=== PATIENT | female | born 1940 | race Caucasian/White ===

== ENCOUNTER 2017-10-14 16:02 | Emergency (ER) | payer OTHER, MEDICAID ==
[~2017-10-14] VITALS: Ht 157.5 cm; Wt 58.5 kg
[~2017-10-14 16:02] MED LIST: ALEIVE PO; ALEVE220 MG PO; ASPIRIN EC81 M1 PO; CELEXA 10 MG TA10 M1 PO; CELEXA40 MG PO; CIPRO250 M1 PO; CIPROFLOXACIN500 M3 PO; FLAGYL500 MG PO; IRON325 PO; LEXAPRO 10 MG T10 M2 PO; LISINOPRIL2.5 MG PO; MULTIVITAMINS1 EAC7 PO; PHENERGAN 25 MG25 MG PO; VITAMINC500 PO
[2017-10-14 16:36] LABS: ABSOLUTE BASOPHILS 0.1 thou/uL (0.0-0.2); ABSOLUTE EOSINOPHILS 0.7 thou/uL (0.0-0.7); ABSOLUTE LYMPHOCYTES 2.6 thou/uL (0.8-5.3); ABSOLUTE MONOCYTES 0.4 thou/uL (0.0-1.2); ABSOLUTE NEUTROPHILS 3.7 thou/uL (1.6-8.1); EOSINOPHILS 9.7 %; HEMATOCRIT 35.8 % (37.0-47.0); HEMOGLOBIN 11.9 gm/dL (12.0-15.0); LYMPHOCYTES 34.5 %; MCH 29.3 pg (26.0-34.0); MCHC 33.2 g/dL (28.0-37.0); MONOCYTES 5.8 %; MPV 8.6 fl. (7.2-11.1); NUCLEATED RBCS 0 /100WBC; PLATELET COUNT* 319 thou/uL (150-400); RBC 4.07 mil/uL (4.20-5.00); RDW-CV 14.9 % (10.5-14.5); WBC 7.6 thou/uL (4.0-11.0)
[2017-10-14 16:40] LABS: ANION GAP 16 mmol/L (7-16); BUN 17 mg/dL (7-18); CALCIUM 9.5 mg/dL (8.5-10.1); CHLORIDE 112 mmol/L (98-107); CO2 17 mmol/L (21-32); CREATININE 1.2 mg/dL (0.6-1.3); GLUCOSE 123 mg/dL (70-99); POTASSIUM 3.9 mmol/L (3.5-5.1); SODIUM 145 mmol/L (136-145)
[2017-10-14 16:51] LABS: ALBUMIN 3.7 g/dL (3.4-5.0); ALKALINE PHOSPHATASE 61 U/L (46-116); LIPASE 74 U/L (73-393); NT-PRO BRAIN NAT PEPTIDE 1671 pg/mL (<300); SGOT 13 U/L (15-37); SGPT 15 U/L (30-65); TOTAL BILIRUBIN 0.5 mg/dL (<0.1-1.0); TOTAL PROTEIN 7.5 g/dL (6.4-8.2); TROPONIN-I LEVEL <0.06 ng/mL (<0.06)
[2017-10-14] MEDS ORDERED: CIPRO250 M1 PO (17:46)
[2017-10-14] MEDS ORDERED: PHENERGAN 25 MG25 M1 PO (17:46)
[2017-10-14 18:54] VITALS: BP 115/79
--- NOTE | 2017-10-15 09:33 | EKG ---
[place] [address] ELECTROCARDIOGRAM REPORT Name: STANLEY MAHAN Room: [facility]#: [id number] Admission: 10/14/17 Attend Phys: Discharge: 10/14/17 Date of : 40 Report #: [id number] THIS REPORT FOR: //name// [facility] ED Test Date: 2017-10-14 Test Time: 15:59:56 Pat Name: STANLEY MAHAN Department: Room: Gender: F Wireless Manager: Josee HALE : 1940 Requested By: Alirio Trujillo Order Number: [id number] MD: Ethan Manuel Measurements Intervals [place] Rate: 79 P: 57 GA: 154 QRS: -54 QRSD: 121 T: 74 QT: 423 QTc: 486 Interpretive Statements Sinus rhythm Left bundle branch block Baseline wander in lead(s) V6 Compared to ECG 05/25/2015 21:05:23 Left bundle-branch block now present Atrial premature complex(es) no longer present Left anterior fascicular block no longer present Left-axis deviation no longer present Intraventricular conduction delay no longer present Electronically Signed On 10-15-2017 9:33:13 CDT by Ethan Manuel [email or web address] <ELECTRONICALLY SIGNED> By: Ethan Manuel MD, [facility] 10/15/17 0933 1559 1559 Ethan Manuel MD, [facility] /EPI
== END 2017-10-14 18:54 | disposition home or self-care (01) ==
LOC: M.ERS 16:02
PROVIDERS: Emergency Medicine
DX: N39.0 Urinary tract infection, site not specified (principal); I10 Essential (primary) hypertension; F41.9 Anxiety disorder, unspecified; Z85.3 Personal history of malignant neoplasm of breast; Z88.0 Allergy status to penicillin

== ENCOUNTER 2018-06-15 17:45 | Inpatient (IN) | payer OTHER, MEDICAID ==
[~2018-06-15] VITALS: Ht 157.5 cm; Wt 63.9 kg
[~2018-06-15 17:45] MED LIST changes: -CELEXA40 MG PO; +LEXAPRO20 MG PO; +PHENERGAN 25 MG25 M1 PO
[2018-06-15 17:47] VITALS: BP 177/85
[2018-06-15 18:50] LABS: HEMATOCRIT 39.3 % (37.0-47.0); HEMOGLOBIN 12.9 gm/dL (12.0-15.0); MCH 29.2 pg (26.0-34.0); MCHC 32.9 g/dL (28.0-37.0); MCV 88.8 fL (80.0-100.0); MPV 7.9 fl. (7.2-11.1); NUCLEATED RBCS 0 /100WBC; PLATELET COUNT* 280 thou/uL (150-400); RBC 4.43 mil/uL (4.20-5.00); RDW-CV 13.8 % (10.5-14.5); WBC 9.3 thou/uL (4.0-11.0)
[2018-06-15 18:59] LABS: CALCIUM 9.4 mg/dL (8.5-10.1); CREATININE 1.5 mg/dL (0.6-1.3); POTASSIUM 3.5 mmol/L (3.5-5.1)
[2018-06-15 19:05] LABS: ALBUMIN 3.9 g/dL (3.4-5.0); TOTAL BILIRUBIN 0.4 mg/dL (<0.1-1.0); TOTAL PROTEIN 7.9 g/dL (6.4-8.2); TROPONIN-I LEVEL 0.08 ng/mL (<0.06)
[2018-06-15 19:09] LABS: ABSOLUTE LYMPHOCYTES 0.9 thou/uL (0.8-5.3); ABSOLUTE MONOCYTES 0.3 thou/uL (0.0-1.2); ABSOLUTE NEUTROPHILS 8.1 thou/uL (1.6-8.1)
[2018-06-15 19:10] LABS: CLUMPED PLTS RARE; PLATELET ESTIMATE ADEQUATE
[2018-06-15 21:00] VITALS: BP 151/74
[2018-06-15 21:15] VITALS: BP 140/90
[2018-06-16] VITALS: BP 156/45
[2018-06-16 00:10] LABS: URINE BILIRUBIN NEGATIVE (Negative); URINE BLOOD 1+ (Negative); URINE CLARITY CLEAR; URINE COLOR YELLOW; URINE GLUCOSE-RANDOM NEGATIVE (Negative); URINE KETONES NEGATIVE (Negative); URINE LEUKOCYTES-REFLEX TRACE (Negative); URINE NITRITE-REFLEX NEGATIVE (Negative); URINE PROTEIN NEGATIVE (Negative); URINE SPECIFIC GRAVITY >= 1.030 (1.005-1.030); URINE UROBILINOGEN 0.2 E.U./dl (0.2-1.0)
[2018-06-16 00:19] LABS: BACTERIA-REFLEX >30 Many /HPF (None Seen); COARSE GRANULAR CASTS 0-3 Few /LPF (None Seen); CRYSTALS None Seen /LPF (None Seen); FINE GRANULAR CASTS 0-3 Few /LPF (None Seen); HYALINE CASTS 0-3 Few /LPF (None Seen); MUCUS 4-6 Moderate strn/LPF (None Seen); SQUAMOUS 0-3 Few /LPF (0-3); URINE RBC 3-10 Few /HPF (0-2); URINE WBC-REFLEX 6-15 Few /HPF (0-5)
[2018-06-16 04:00] VITALS: BP 121/55
--- NOTE | 2018-06-16 06:12 | NUR ---
PT TO FLOOR APPROX 2100. VITALS WNL. SEE MAR. SEE CHARTING. FALL PRECAUTIONS IN PLACE. HOURLY ROUNDING FOR SAFETY.
[2018-06-16 09:00] VITALS: BP 124/53; BP 138/69
--- NOTE | 2018-06-16 09:00 | NUR ---
ASSUMED PT. CARE AND RECEIVED REPORT AT 0730. PT A/OX4, VSS, MONITOR ON TRACING SR. PT. DENIES CURRENT PAIN/NAUSEA/DIARRHEA. ON RA@ 99%. FULL ASSESSMENT COMPLETED, REFER TO CHARTING. PT. ANXIOUS ABOUT BEING IN HOSPITAL AND NEEDING TO GO HOME. PT. STATES SHE NEEDS TO LEAVE SO HER DAUGHTER CAN GO TO WORK TOMORROW, AND SHE CAN TAKE CARE OF THE DOG. PT. EDUCATED ON PLAN OF CARE AND CURRENT LAB RESULTS. FAMILY MEMBER AT BEDSIDE AND ENCOURAGED PT. TO FOCUS ON SELF, THEY COULD TAKE CARE OF THE DOG. CALL LIGHT IN REACH, WILL CONTINUE WITH PLAN OF CARE.
[2018-06-16 11:17] LABS: ANION GAP 9 mmol/L (7-16); BUN 23 mg/dL (7-18); CALCIUM 7.9 mg/dL (8.5-10.1); CHLORIDE 112 mmol/L (98-107); CO2 20 mmol/L (21-32); CREATININE 1.3 mg/dL (0.6-1.3); GLUCOSE 101 mg/dL (70-99); POTASSIUM 3.9 mmol/L (3.5-5.1); SODIUM 141 mmol/L (136-145)
[2018-06-16 11:21] LABS: CHOLESTEROL 159 mg/dL (<200); HDL CHOLESTEROL 47 mg/dL (>40); LDL CHOLESTEROL 103 mg/dL (<100); MAGNESIUM 1.6 mg/dL (1.8-2.4); TC:HDL 3.4 Ratio (Not establshd); TRIGLYCERIDE 49 mg/dL (<150); VLDL 10 mg/dL (<40)
[2018-06-16 11:23] LABS: SERUM ASSESSMENT Clear
[2018-06-16 12:00] VITALS: BP 127/52
--- NOTE | 2018-06-16 12:15 | NUR ---
MET WITH PT TO DISCUSS HOME SITUATION/DC PLANNING. PT AND HER DTR SHEY LIVE TOGETHER. SHEY WORKS. PT IS INDEPENDENT WTIH ADLS, USES NO EQUIPMENT. SHE IS ANXIOUS TO GO HOME, WORRIED ABOUT THE DOG. DIL IN ROOM AND IS CARING FOR DOG. REASSURANCE GIVEN TO PT. PT STATES FEELING IMPROVED. DENIES DC NEEDS, WILL FOLLOW
--- NOTE | 2018-06-16 13:56 | EKG ---
[place] [address] ELECTROCARDIOGRAM REPORT Name: STANLEY MAHAN Room: [address] ADM IN M.R.#: [id number] Admission: 06/15/18 Attend Phys: Wei Stack MD Discharge: Date of : 40 Report #: [id number] THIS REPORT FOR: //name// [facility] ED Test Date: 2018-06-15 Test Time: 18:31:32 Pat Name: STANLEY MAHAN Department: Room: [facility] Gender: F Import/Export Specialist: ABIGAIL : 1940 Requested By: Latisha Darnell Order Number: [id number] MD: Gee Lynn Measurements Intervals [place] Rate: 85 P: 66 [place]: 168 QRS: -66 QRSD: 123 T: 103 QT: 413 QTc: 492 Interpretive Statements Sinus rhythm Atrial premature complexes Nonspecific IVCD with LAD LVH with secondary repolarization abnormality Anterior Q waves, possibly due to LVH Compared to ECG 10/14/2017 15:59:56 Atrial premature complex(es) now present Left ventricular hypertrophy now present Electronically Signed On 06-16-2018 13:56:32 ROW BOSS by Gee Lynn [email or web address] <ELECTRONICALLY SIGNED> By: Gee Lynn MD, FACC 06/16/18 1356 183 183 Gee Lynn MD, FAC /EPI
--- NOTE | 2018-06-16 13:57 | EKG ---
[place] [address] ELECTROCARDIOGRAM REPORT Name: STANLEY MAHAN Room: [address] ADM IN M.R.#: [id number] Admission: 06/15/18 Attend Phys: Wei Stack MD Discharge: Date of : 40 Report #: [id number] THIS REPORT FOR: //name// [facility] ED Test Date: 2018-06-15 Test Time: 20:10:17 Pat Name: STANLEY MAHAN Department: Room: [facility] Gender: F Internal Medicine Physician: Josee TEIXEIRA : 1940 Requested By: Nikky Cardenas Order Number: [id number] MD: Gee Lynn Measurements Intervals [place] Rate: 90 P: 44 ND: 166 QRS: -58 QRSD: 120 T: 103 QT: 391 QTc: 479 Interpretive Statements Sinus rhythm Ventricular premature complex Left anterior fascicular block Probable left ventricular hypertrophy Anterior Q waves, possibly due to LVH Abnormal T, consider ischemia, lateral leads Electronically Signed On 06-16-2018 13:57:31 CLEARING SUPERVISOR by Gee Lynn [email or web address] <ELECTRONICALLY SIGNED> By: Gee Lynn MD, FACC 06/16/18 1357 09 09 Gee Lynn MD, [facility] /EPI
--- NOTE | 2018-06-16 16:23 | 2DMMODE ---
[place] [address] 2 D/M-MODE ECHOCARDIOGRAM Name: STANLEY MAHAN Room: [address] IN [facility]#: [id number] Admission: 06/15/18 Attend Phys: Wei Stack, Discharge: Date of : 40 Date of Service: 06/16/18 1623 Report #: [id number] THIS REPORT FOR: //name// APPROVED REPORT Study performed: 06/16/2018 15:05:24 EXAM: Comprehensive 2D, Doppler, and color-flow Echocardiogram Patient Location: In-Patient Room #: [facility] Status: routine BSA: 1.62 HR: 75 bpm BP: 127/52 mmHg Rhythm: NSR Other Information Study Quality: Good Indications Chest Pain 2D Dimensions IVSd: 10.84 (7-11mm) LVOT Diam: 20.05 (18-24mm) LVDd: 53.33 mm PWd: 11.46 (7-11mm) Ascending Ao: 28.88 (22-36mm) LVDs: 40.88 (25-40mm) Aortic Root: 30.79 mm Volumes Left Atrial Volume (Systole) LA ESV Index: 41.60 mL/m2 Aortic Valve AoV Peak Dmitri.: 2.42 m/s AO Peak Gr.: 23.43 mmHg LVOT Max P.39 mmHg AO Mean Gr.: 13.42 mmHg LVOT Mean P.93 mmHg LVOT Max V: 1.36 m/s AO V2 VTI: 51.96 cm LVOT Mean V: 0.92 m/s KAMERON (VTI): 1.82 cm2 LVOT V1 VTI: 30.00 cm AI Ripley: 4.47 m/s2 AI PHT: 267.41 ms Mitral Valve E/A Ratio: 0.86 [place] [address] 2 D/M-MODE ECHOCARDIOGRAM Name: STANLEY MAHAN Room: [address] IN [facility].#: [id number] Admission: 06/15/18 Attend Phys: Wei Stack, Discharge: Date of : 40 Date of Service: 06/16/18 1623 Report #: [id number] MV Decel. Time: 228.10 ms MV E Max Dmitri.: 1.11 m/s MV PHT: 66.15 ms MVA (PHT): 3.33 cm2 TDI E/Lateral E': 9.25 E/Medial E': 13.88 Medial E' Dmitri.: 0.08 m/s Lateral E' Dmitri.: 0.12 m/s Pulmonary Valve PV Peak Dmitri.: 1.04 m/s PV Peak Gr.: 4.34 mmHg Tricuspid Valve RAP Estimate: 5.00 mmHg TR Peak Gr.: 25.44 mmHg RVSP: 30.00 mmHg PA Pressure: 30.00 mmHg Left Ventricle The left ventricle is normal size. There is normal LV segmental wall motion. There is normal left ventricular wall thickness. Left ventricular systolic function is normal. The left ventricular ejection fraction is within the normal range. LVEF is 50-55%. The left ventricular diastolic function is normal. Right Ventricle The right ventricle is normal size. The right ventricular systolic function is normal. Atria Left atrium is mild to moderately dilated. The right atrium size is normal. Aortic Valve Mild aortic valve sclerosis. Trace aortic regurgitation. Mild aortic stenosis. Mitral Valve There is mitral annular calcification. Trace mitral regurgitation. No evidence of mitral valve stenosis. Tricuspid Valve The tricuspid valve is normal in structure. Mild tricuspid regurgitation. estimated pa pressure 30 [place] [address] 2 D/M-MODE ECHOCARDIOGRAM Name: STANLEY MAHAN Room: [address]#: [id number] Admission: 06/15/18 Attend Phys: Wei Stack, Discharge: Date of : 40 Date of Service: 06/16/18 1623 Report #: [id number] The pulmonary valve is normal in structure. Trace pulmonic regurgitation. Great Vessels The aortic root is normal in size. IVC is normal in size and collapses >50% with inspiration. Pericardium There is no pericardial effusion. <Conclusion> LVEF is 50-55%. Left atrium is mild to moderately dilated. Mild aortic stenosis. <ELECTRONICALLY SIGNED> By: Gee Lynn MD, FACC 06/16/18 1623 1623 1623 Gee Lynn MD, FACC /INF
[2018-06-16 16:42] VITALS: BP 143/57
--- NOTE | 2018-06-16 19:00 | NUR ---
PT. WITH 2 WATERY STOOLS TODAY, GREEN IN COLOR. NO NAUSEA/VOMITING THIS SHIFT. PT. STATES SHE IS FEELING BETTER. PT. ANXIOUS AT TIMES, CONCERNED OVER FAMILY BEING HERE AND MISSING OUT ON THEIR APPOINTMENTS TO TAKE CARE OF HER. TOLERATED FOOD WELL, WITH EXCEPTION OF "SPICEY" PASTA FOR DINNER. PT RECEIVED MYLANTA PER REQUEST. HOURLY ROUNDING COMPLETED THROUGH OUT THE DAY FOR PT. SAFETY.
[2018-06-16 20:00] VITALS: BP 150/97
[2018-06-17] VITALS (7 sets, daily range): BP systolic 104–157; BP diastolic 60–83
[2018-06-17 00:14] LABS: INFLUENZA A ANTIGEN None Detected (None Detect); INFLUENZA B ANTIGEN None Detected (None Detect)
[2018-06-17 05:11] LABS: HEMATOCRIT 29.7 % (37.0-47.0); MCH 29.5 pg (26.0-34.0); MCHC 33.1 g/dL (28.0-37.0); MCV 89.1 fL (80.0-100.0); MPV 7.9 fl. (7.2-11.1); RBC 3.34 mil/uL (4.20-5.00); RDW-CV 13.6 % (10.5-14.5); WBC 5.7 thou/uL (4.0-11.0)
[2018-06-17 05:17] LABS: HEMOGLOBIN 9.9 gm/dL (12.0-15.0)
--- NOTE | 2018-06-17 05:46 | NUR ---
ASSUMED CARE OF PT AFTER REPORT AT 1930. PT A&OX4. VSS. PHSYICAL ASSESSMENT COMPLETED AND CHARTED. PT ON RA WITH 99% O2 SAT. PT TRACING SR BBB ON TELE. PT UP STANDBY TO RESTROOM. DENIES ANY PAIN, NAUSEA OR SOA. PT RESTED WELL ON BED . HS REST & SAFETY GOALS ACHIEVED. CALL LIGHT WITHIN REACH. BED IN LOW POSITION.
[2018-06-17 06:01] LABS: CALCIUM 8.2 mg/dL (8.5-10.1); POTASSIUM 3.7 mmol/L (3.5-5.1)
--- NOTE | 2018-06-17 10:46 | CON ---
[address] [address] CONSULTATION Name: STANLEY MAHAN Room: [address] IN M.R.#: [id number] Admission: 06/15/18 Attend Phys: Wei Stack MD Discharge: Date of : 40 Report #: [id number] THIS REPORT FOR: //name// CC: Wei Rayo MD DATE OF SERVICE: 06/16/2018 HISTORY OF PRESENT ILLNESS: The patient is a 77-year-old single white female who I was asked to see in the hospital today after she complained of fatigue. The patient has no previous history of heart disease. She still lives by herself and able to do her housework. She has no history of myocardial infarction, chest pain, shortness of breath, palpitations. She apparently did have an episode recently where she has been lying in bed, had a brief episode of confusion. She then was doing well until yesterday afternoon; she felt nauseated, vomited, had loose stool and felt weak. An ambulance was called. She was brought here to [place] and admitted. She is known to have a borderline troponin. I was asked to see her for further evaluation and treatment. PAST MEDICAL HISTORY: Significant for breast cancer. She had left mastectomy. She has had previous colonoscopy that found no polyps. She does have a history of hypertension. She was here at [place] in 2014 with gastroenteritis. CURRENT MEDICATIONS: Consist of lisinopril and an anxiety pill. ALLERGIES: PENICILLIN. FAMILY HISTORY: Her father had heart disease. SOCIAL HISTORY: She is , lives with daughter in [place]. No smoking or alcohol abuse. REVIEW OF SYSTEMS: She had no history of stroke, asthma, peptic ulcer disease, liver disease, kidney disease, psychiatric illness or chronic skin condition. PHYSICAL EXAMINATION: GENERAL: Revealed an elderly frail appearing female, lying in bed. She appeared in no distress. VITAL SIGNS: She had a blood pressure of 140/80, pulse is 80. She was afebrile. HEENT: She is anicteric, conjunctiva pink. Mucous membranes moist. NECK: Veins nondistended. No carotid bruits. Neck supple. CHEST: Clear to auscultation. CARDIOVASCULAR: Regular [place] [address] CONSULTATION Name: STANLEY MAHAN Fany Room: [address]#: [id number] Admission: 06/15/18 Attend Phys: Wei Stack MD Discharge: Date of : 40 Report #: [id number] ABDOMEN: Soft, nontender. EXTREMITIES: Had no edema. Dorsalis pedis pulse 2+ bilaterally. SKIN: Warm, dry. NEUROLOGIC: Nonfocal. LYMPH: No adenopathy. MUSCULOSKELETAL: No joint effusion. ECG on admission showed a sinus rhythm, occasional PAC, left anterior fascicular block. On the monitor, the patient has had occasional PVC. Her workup today, she had an echocardiogram that showed ejection fraction 55%, left atrial dilatation and mild aortic stenosis. She had CT scan of the abdomen that showed evidence of gastroenteritis, diverticulosis, small gallstones. Her chest x-ray showed no acute abnormality. LABORATORY WORK: Sodium 141, creatinine 1.3, glucose 101. Liver function studies were normal. Troponin was 0.08, actually peaked at 0.22. Her cholesterol 159, triglyceride 49, HDL 47, LDL 103. Her white blood cell count 9.3, hemoglobin 12.9. She had a urinalysis that was negative for protein, 1+ blood, trace leukocytes, few squamous cells. IMPRESSION AND RECOMMENDATIONS: 1. Borderline troponin. No history of angina. I would recommend no further cardiac evaluation. 2. Mild aortic stenosis. 3. Hypertension. The patient is on an COSMO inhibitor. 4. Nausea, vomiting, diarrhea. Suspect gastroenteritis. 5. History of breast cancer. <ELECTRONICALLY SIGNED> By: Gee Lynn MD, FACC 06/17/18 1046 1657 [id number] Lynn MD, FACC /nt
[2018-06-17] MEDS ORDERED: LIPITOR 20 MG T20 M1 PO (11:53)
--- NOTE | 2018-06-17 12:29 | NUR ---
ASSUMED PT CARE AT 0730 REPORT RECEIVED FROM NURSE. PT IS AOX4 SR ON DIRECTOR OF MANUFACTURING OPERATIONS, WALKED IN ROOM AND PT ASKED WHEN SHE IS GOING HOME. NURSE TELLS PT TO WAIT FOR DR . PT HAD LOOSED STOOL THIS AM. DR AWARE, DR CAME UP AND SIGNED DC PAPERS. PT TO BE DC LATER TODAY. ALEK CONTINUE TO MONITOR
== END 2018-06-17 13:30 | disposition home or self-care (01) | DRG 391 ==
LOC: M.ERS 17:45 → M.TBA-ER 20:16 → M.2W 20:16
PROVIDERS: Internal Medicine; Physician Assistant; ADMIT Internal Medicine
DX: A08.4 Viral intestinal infection, unspecified (principal); N17.0 Acute kidney failure with tubular necrosis; I10 Essential (primary) hypertension; F41.9 Anxiety disorder, unspecified; I35.0 Nonrheumatic aortic (valve) stenosis; K59.09 Other constipation; K80.20 Calculus of gallbladder without cholecystitis without obstruction; K57.90 Diverticulosis of intestine, part unspecified, without perforation or abscess without bleeding; F41.1 Generalized anxiety disorder; I25.10 Atherosclerotic heart disease of native coronary artery without angina pectoris; Z79.82 Long term (current) use of aspirin; Z85.3 Personal history of malignant neoplasm of breast; Z90.11 Acquired absence of right breast and nipple; Z87.81 Personal history of (healed) traumatic fracture; Z88.0 Allergy status to penicillin; Z82.49 Family history of ischemic heart disease and other diseases of the circulatory system; Z79.899 Other long term (current) drug therapy

== ENCOUNTER 2018-06-25 16:28 | Emergency (ER) | payer OTHER, MEDICAID ==
[~2018-06-25] VITALS: Ht 152.4 cm; Wt 63.5 kg
[~2018-06-25 16:28] MED LIST changes: +LIPITOR 20 MG T20 M1 PO
[2018-06-25 17:11] LABS: ABSOLUTE BASOPHILS 0.1 thou/uL (0.0-0.2); ABSOLUTE EOSINOPHILS 0.1 thou/uL (0.0-0.7); ABSOLUTE MONOCYTES 0.2 thou/uL (0.0-1.2); ABSOLUTE NEUTROPHILS 11.5 thou/uL (1.6-8.1); BASOPHILS 0.5 %; EOSINOPHILS 0.5 %; HEMATOCRIT 38.9 % (37.0-47.0); HEMOGLOBIN 12.5 gm/dL (12.0-15.0); LYMPHOCYTES 14.4 %; MCH 28.6 pg (26.0-34.0); MCV 89.5 fL (80.0-100.0); MONOCYTES 1.6 %; NUCLEATED RBCS 0 /100WBC; PLATELET COUNT* 354 thou/uL (150-400); RBC 4.35 mil/uL (4.20-5.00); RDW-CV 14.5 % (10.5-14.5); WBC 13.9 thou/uL (4.0-11.0)
[2018-06-25 17:16] LABS: ANION GAP 13 mmol/L (7-16); BUN 20 mg/dL (7-18); CALCIUM 9.2 mg/dL (8.5-10.1); CHLORIDE 107 mmol/L (98-107); CO2 21 mmol/L (21-32); CREATININE 1.2 mg/dL (0.6-1.3); GLUCOSE 129 mg/dL (70-99); POTASSIUM 3.5 mmol/L (3.5-5.1); SODIUM 141 mmol/L (136-145)
[2018-06-25 17:23] LABS: ALBUMIN 3.9 g/dL (3.4-5.0); ALKALINE PHOSPHATASE 86 U/L (46-116); LIPASE 641 U/L (73-393); SGOT 25 U/L (15-37); SGPT 24 U/L (30-65); TOTAL BILIRUBIN 0.4 mg/dL (<0.1-1.0); TOTAL PROTEIN 7.9 g/dL (6.4-8.2); TROPONIN-I LEVEL <0.06 ng/mL (<0.06)
[2018-06-25 18:00] LABS: URINE BILIRUBIN NEGATIVE (Negative); URINE BLOOD 2+ (Negative); URINE CLARITY CLEAR; URINE COLOR YELLOW; URINE GLUCOSE-RANDOM NEGATIVE (Negative); URINE KETONES NEGATIVE (Negative); URINE LEUKOCYTES-REFLEX NEGATIVE (Negative); URINE NITRITE-REFLEX NEGATIVE (Negative); URINE PROTEIN NEGATIVE (Negative); URINE SPECIFIC GRAVITY 1.015 (1.005-1.030); URINE UROBILINOGEN 0.2 E.U./dl (0.2-1.0)
[2018-06-25 18:10] LABS: BACTERIA-REFLEX None Seen /HPF (None Seen); CASTS None Seen /LPF (None Seen); SQUAMOUS 0-3 Few /LPF (0-3); URINE RBC 0-2 Rare /HPF (0-2); URINE WBC-REFLEX None Seen /HPF (0-5)
[2018-06-25 18:11] LABS: AMORPHOUS URATES Few /LPF (None Seen)
[2018-06-25] MEDS ORDERED: ZOFRAN ODT4 MG PO (18:22)
[2018-06-25 18:36] VITALS: BP 176/77
--- NOTE | 2018-06-26 12:41 | EKG ---
[place] [address] ELECTROCARDIOGRAM REPORT Name: STANLEY MAHAN Room: [facility]#: [id number] Admission: 06/25/18 Attend Phys: Discharge: 06/25/18 Date of : 40 Report #: [id number] THIS REPORT FOR: //name// [facility] ED Test Date: 2018-06-25 Test Time: 16:34:38 Pat Name: STANLEY MAHAN Department: Room: Gender: F Wrapper Hand: Josee HALE : 1940 Requested By: Angel Boucher Order Number: [id number] Reading MD: Ethan Manuel Measurements Intervals [place] Rate: 82 P: 19 [place]: 155 QRS: -67 QRSD: 117 T: 97 QT: 413 QTc: 483 Interpretive Statements Sinus rhythm Atrial premature complex Left anterior fascicular block Probable left ventricular hypertrophy Nonspecific T abnormalities, lateral leads Compared to ECG 06/15/2018 20:10:17 Atrial premature complex(es) now present Ventricular premature complex(es) no longer present Q waves no longer present Possible ischemia no longer present T-wave abnormality still present Electronically Signed On 06-26-2018 12:41:35 OCCUPATIONAL THERAPIST ASSISTANTS by Ethan Manuel [email or web address] <ELECTRONICALLY SIGNED> By: Ethan Manuel MD, FACC 06/26/18 1241 1634 1634 Ethan Manuel MD, FAC /EPI
== END 2018-06-25 18:37 | disposition home or self-care (01) ==
LOC: M.ERS 16:28
PROVIDERS: Emergency Medicine
DX: R11.2 Nausea with vomiting, unspecified (principal); R19.7 Diarrhea, unspecified; I10 Essential (primary) hypertension; F41.9 Anxiety disorder, unspecified; Z88.0 Allergy status to penicillin; Z85.3 Personal history of malignant neoplasm of breast

== ENCOUNTER 2018-08-22 17:47 | Inpatient (IN) | payer OTHER, MEDICAID ==
[~2018-08-22] VITALS: Ht 157.5 cm; Wt 57.2 kg
[~2018-08-22 17:47] MED LIST changes: +ZOFRAN ODT4 MG PO
[2018-08-22 17:57] VITALS: BP 187/62
[2018-08-22] MEDS ORDERED: MELATONIN3 MG PO (18:00)
[2018-08-22 18:21] LABS: ABSOLUTE BASOPHILS 0.1 thou/uL (0.0-0.2); ABSOLUTE EOSINOPHILS 0.1 thou/uL (0.0-0.7); ABSOLUTE LYMPHOCYTES 1.9 thou/uL (0.8-5.3); ABSOLUTE MONOCYTES 0.4 thou/uL (0.0-1.2); ABSOLUTE NEUTROPHILS 3.1 thou/uL (1.6-8.1); EOSINOPHILS 2.5 %; HEMATOCRIT 34.3 % (37.0-47.0); HEMOGLOBIN 11.1 gm/dL (12.0-15.0); LYMPHOCYTES 34.4 %; MCH 28.9 pg (26.0-34.0); MCHC 32.4 g/dL (28.0-37.0); MCV 89.1 fL (80.0-100.0); MONOCYTES 7.5 %; NUCLEATED RBCS 0 /100WBC; PLATELET COUNT* 272 thou/uL (150-400); POLYS 54.6 %; RBC 3.84 mil/uL (4.20-5.00); RDW-CV 14.9 % (10.5-14.5); WBC 5.6 thou/uL (4.0-11.0)
[2018-08-22 18:54] LABS: ALBUMIN 3.9 g/dL (3.4-5.0); ALKALINE PHOSPHATASE 82 U/L (46-116); ANION GAP 12 mmol/L (7-16); BUN 37 mg/dL (7-18); CALCIUM 8.2 mg/dL (8.5-10.1); CHLORIDE 110 mmol/L (98-107); CO2 20 mmol/L (21-32); CREATININE 1.5 mg/dL (0.6-1.3); GLUCOSE 92 mg/dL (70-99); POTASSIUM 4.3 mmol/L (3.5-5.1); SGOT 20 U/L (15-37); SGPT 22 U/L (30-65); SODIUM 142 mmol/L (136-145); TOTAL BILIRUBIN 0.3 mg/dL (<0.1-1.0); TOTAL PROTEIN 7.5 g/dL (6.4-8.2); TROPONIN-I LEVEL <0.06 ng/mL (<0.06)
[2018-08-22 21:10] VITALS: BP 170/65
[2018-08-22 21:20] VITALS: BP 127/89
[2018-08-22] MEDS ORDERED: ANTIVERT25 MG PO (22:32)
[2018-08-23] VITALS: BP 149/41
[2018-08-23 04:00] VITALS: BP 128/46
[2018-08-23 07:50] VITALS: BP 147/45
[2018-08-23 08:22] LABS: ALBUMIN 3.2 g/dL (3.4-5.0); ALKALINE PHOSPHATASE 67 U/L (46-116); ANION GAP 9 mmol/L (7-16); BUN 33 mg/dL (7-18); CALCIUM 8.3 mg/dL (8.5-10.1); CHLORIDE 114 mmol/L (98-107); CHOLESTEROL 132 mg/dL (<200); CO2 21 mmol/L (21-32); CREATININE 1.4 mg/dL (0.6-1.3); GLUCOSE 88 mg/dL (70-99); HDL CHOLESTEROL 66 mg/dL (>40); LDL CHOLESTEROL 59 mg/dL (<100); POTASSIUM 4.8 mmol/L (3.5-5.1); SGOT 15 U/L (15-37); SGPT 17 U/L (30-65); SODIUM 144 mmol/L (136-145); TOTAL BILIRUBIN 0.4 mg/dL (<0.1-1.0); TOTAL PROTEIN 6.4 g/dL (6.4-8.2); TRIGLYCERIDE 37 mg/dL (<150); VLDL 7 mg/dL (<40)
[2018-08-23 08:24] LABS: SERUM ASSESSMENT Clear
--- NOTE | 2018-08-23 09:13 | EKG ---
[place] [address] ELECTROCARDIOGRAM REPORT Name: STANLEY MAHAN Room: [address] ADM IN M.R.#: [id number] Admission: 08/22/18 Attend Phys: Poppy Gould MD Discharge: Date of : 40 Report #: [id number] THIS REPORT FOR: //name// [facility] ED Test Date: 2018-08-22 Test Time: 18:10:35 Pat Name: STANLEY MAHAN Department: Room: [facility] Gender: F Title I Paraprofessional: Josee HALE : 1940 Requested By: Favian Henning Order Number: [id number] MD: Gee Lynn Measurements Intervals [place] Rate: 72 P: -7 [place]: 158 QRS: -57 QRSD: 117 T: 97 QT: 428 QTc: 469 Interpretive Statements Sinus rhythm Ventricular premature complex Left anterior fascicular block Probable left ventricular hypertrophy Nonspecific T abnormalities, lateral leads ST elevation, consider early repolarization Compared to ECG 06/25/2018 16:34:38 Ventricular premature complex(es) now present Atrial premature complex(es) no longer present T-wave abnormality still present Electronically Signed On 08-23-2018 9:13:31 CDT by Gee Lynn [email or web address] <ELECTRONICALLY SIGNED> By: Gee Lynn MD, [facility] 08/23/18912 09 09 Gee Lynn MD, [facility] /EPI
[2018-08-23 12:00] VITALS: BP 157/53
[2018-08-23 16:00] VITALS: BP 140/56
[2018-08-23 20:00] VITALS: BP 139/68
[2018-08-24] VITALS: BP 129/50
[2018-08-24 02:08] LABS: GLYCOHEMOGLOBIN (HGB A1C) 5.4 % (4.8-5.6)
[2018-08-24 04:00] VITALS: BP 132/42
[2018-08-24 08:00] VITALS: BP 138/70
[2018-08-24] MEDS ORDERED: ATORVASTATIN CA40 MG PO (10:00)
[2018-08-24] MEDS ORDERED: ASPIRIN EC81 M1 PO (10:00)
[2018-08-24 11:50] VITALS: BP 138/70
[2018-08-24 11:53] VITALS: BP 138/70
--- NOTE | 2018-08-27 10:16 | CON ---
[address] [address] CONSULTATION Name: STANLEY MAHAN Fany Room: [address] IN M.R.#: [id number] Admission: 08/22/18 Attend Phys: Poppy Gould MD Discharge: 08/24/18 Date of : 40 Report #: [id number] THIS REPORT FOR: //name// CC: Mary Lou Gould DATE OF SERVICE: 08/23/2018 HISTORY OF PRESENT ILLNESS: This is a 78-year-old female patient who was evaluated by me for the episode where her right arm become spastic. There was some symptom on the right side of the face. She had significant speech difficulty with it and then the symptom resolved by itself. Her symptoms started spontaneously, and they are severe symptoms when it happened. She is on aspirin, and she was given aspirin here. REVIEW OF SYSTEMS: Indicates that this patient has a history of breast cancer. She has a history of anxiety, constipation, hypertension, but she never had any history of stroke in the past. Presently, she was not complaining of any eye, ENT, cardiac, respiratory, GI, , musculoskeletal, constitutional, dermatological, hematological, psychiatric, throat, allergic symptom associated with present symptomatology. PAST MEDICAL HISTORY: Negative for these kind of symptoms. FAMILY HISTORY: Negative for early age stroke. SOCIAL HISTORY: She drinks about 1 alcoholic drink a day. She was somewhat circumvent about the amount, but she says she does not drink excessively. PHYSICAL EXAMINATION: Indicates she is alert, responsive, able to follow simple and complex command. Her speech, concentration, fund of knowledge and memory are at her baseline. Cranial nerve examination 2-12 looks unremarkable. She has symmetrical strength, sensation, reflexes and tone in all 4 extremities. There is no meningeal sign. There is no carotid bruit. I could not look at the fundus. There is no cerebellar sign. She is able to walk by herself. She is moderately built individual. She does not have any dysmorphic features of eyes, ears and face. Her vision and hearing look adequate. She has no thyroid mass. Her pulses are palpable. She has no edema, cyanosis or jaundice. Blood pressure is 140/56, pulse is 69, temperature is 98.5. LABORATORY DATA: Indicates a normal white count. Her GFR is somewhat low at 36 and that has been persistently low. So far, the testing this patient had was a CT scan of the head. Subsequently, Vascular Surgery ordered a CT angiogram of the neck. Those tests were already done, and they were reviewed and does not [place] [address] CONSULTATION Name: STANLEY MAHAN Fany Room: [address] IN M.R.#: [id number] Admission: 08/22/18 Attend Phys: Poppy Gould MD Discharge: 08/24/18 Date of : 40 Report #: [id number] which can explain the patient's symptoms. IMPRESSION: It is not clear what the patient's symptoms are from. I am going to do an MRA of the head. This may be vasospastic transient ischemic attack. I cannot exclude nonconvulsive seizure, so I got an EEG done and that was unremarkable. It looks like the patient had a CT angiogram. Since her GFR is somewhat low, I asked her to drink a lot of water today. I offered to give her some IV fluid, but she declined that. I will look at the MRI. If MRI is normal, then we probably need to watch her. Her LDL and HDL are pretty good. The last time her vitamin B12 was somewhat low. So I am going to check that and if it turns out to be low, then we may give a supplement. Thank you very much for this referral and if you have any question, please feel free to contact me. <ELECTRONICALLY SIGNED> By: Saad Najera MD 08/27/18 1016 1749 1312Pkillian Najera MD /nt
--- NOTE | 2018-08-27 10:16 | EEG ---
[address] [address] EEG STUDY REPORT Name: NEGRITOSTANLEY PORTER Fany Room: [address] IN M.R.#: [id number] Admission: 08/22/18 Attend Phys: Poppy Gould MD Discharge: 08/24/18 Date of : 40 Report #: [id number] THIS REPORT FOR: //name// CC: Mary Lou Gould DATE OF SERVICE: 08/23/2018 INTERPRETATION: This patient is being evaluated for episodes of speech difficulty. EEG was done by placing the electrodes by standard 10-20 system of electrode placement. Both referential and sequential montages were used for recording. Background activity in this patient's EEG is about 11 Hz and 30 microvolts. The patient became drowsy that is associated with bilateral slowing and vertex sharp waves. Photic stimulation was unremarkable. Throughout the record, no active epileptiform activity was noticed. IMPRESSION: This patient's EEG is unremarkable. Thank you very much for this referral. <ELECTRONICALLY SIGNED> By: Saad Najera MD 08/27/18 1016 1731 1917Saad Najera MD /nt
== END 2018-08-24 13:00 | disposition home or self-care (01) | DRG 69 ==
LOC: M.ERS 17:47 → M.2W 19:06 → M.TBA-ER 19:06 → M.2W 20:19
PROVIDERS: Emergency Medicine Emergency Medical Services; ADMIT Internal Medicine
DX: G45.9 Transient cerebral ischemic attack, unspecified (principal); F41.1 Generalized anxiety disorder; E78.5 Hyperlipidemia, unspecified; I12.9 Hypertensive chronic kidney disease with stage 1 through stage 4 chronic kidney disease, or unspecified chronic kidney disease; N18.3 Chronic kidney disease, stage 3 (moderate); I35.0 Nonrheumatic aortic (valve) stenosis; K80.20 Calculus of gallbladder without cholecystitis without obstruction; Z85.3 Personal history of malignant neoplasm of breast; Z88.0 Allergy status to penicillin; Z90.11 Acquired absence of right breast and nipple; Z82.49 Family history of ischemic heart disease and other diseases of the circulatory system

== ENCOUNTER 2018-10-31 19:46 | Inpatient (IN) | payer OTHER, MEDICAID ==
[~2018-10-31] VITALS: Ht 157.5 cm; Wt 54.9 kg
[~2018-10-31 19:46] MED LIST changes: +ANTIVERT25 MG PO; +ATORVASTATIN CA40 MG PO; +MELATONIN3 MG PO
[2018-10-31 20:06] VITALS: BP 100/58
[2018-10-31 20:33] LABS: URINE BILIRUBIN 2+ (Negative); URINE BLOOD 1+ (Negative); URINE CLARITY CLOUDY; URINE COLOR YELLOW; URINE GLUCOSE-RANDOM NEGATIVE (Negative); URINE KETONES TRACE (Negative); URINE LEUKOCYTES-REFLEX 2+ (Negative); URINE NITRITE-REFLEX NEGATIVE (Negative); URINE PROTEIN 2+ (Negative); URINE SPECIFIC GRAVITY 1.025 (1.005-1.030)
[2018-10-31 20:36] LABS: ICTOTEST (BILI CONFIRMATORY) Negative (Negative)
[2018-10-31 20:41] LABS: HYALINE CASTS 4-10 Moderate /LPF (None Seen); MUCUS None Seen strn/LPF (None Seen); SQUAMOUS >10 Many /LPF (0-3)
[2018-10-31 20:42] LABS: CRYSTALS None Seen /LPF (None Seen); URINE RBC 0-2 Rare /HPF (0-2)
[2018-10-31 20:52] LABS: ABSOLUTE EOSINOPHILS 0.4 thou/uL (0.0-0.7); ABSOLUTE LYMPHOCYTES 1.5 thou/uL (0.8-5.3); ABSOLUTE MONOCYTES 0.6 thou/uL (0.0-1.2); ABSOLUTE NEUTROPHILS 3.7 thou/uL (1.6-8.1); BASOPHILS 0.4 %; EOSINOPHILS 6.9 %; HEMATOCRIT 34.3 % (37.0-47.0); HEMOGLOBIN 11.3 gm/dL (12.0-15.0); LYMPHOCYTES 24.3 %; MCH 29.4 pg (26.0-34.0); MCV 89.2 fL (80.0-100.0); NUCLEATED RBCS 0 /100WBC; PLATELET COUNT* 335 thou/uL (150-400); POLYS 58.4 %; RBC 3.85 mil/uL (4.20-5.00); RDW-CV 16.2 % (10.5-14.5); WBC 6.3 thou/uL (4.0-11.0)
[2018-10-31 20:56] LABS: CALCIUM 8.8 mg/dL (8.5-10.1); CREATININE 2.2 mg/dL (0.6-1.3)
[2018-10-31 21:13] LABS: ALBUMIN 3.1 g/dL (3.4-5.0); TOTAL BILIRUBIN 2.5 mg/dL (<0.1-1.0); TOTAL PROTEIN 7.9 g/dL (6.4-8.2)
[2018-10-31] MEDS ORDERED: NORCO 7.5-3251 EACH PO (23:17)
[2018-11-01 00:35] VITALS: BP 144/52
--- NOTE | 2018-11-01 05:32 | NUR ---
PT ARRIVED TO ROOM VIA CART AT 0025. FAMILY AT BEDSIDE. PT VOICED NO CONCERNS. DENIES PAIN, AA0X3, FORGETFUL. ORIENTED TO ROOM AND CALL LIGHT. HIGH FALL PRECAUTIONS IN PLACE. NPO FOR GI CONSULT. HOURLY ROUNDING COMPLETED. IV FLUIDS INFUSING. CALL LIGHT WITHIN REACH.
[2018-11-01 09:49] LABS: ABSOLUTE EOSINOPHILS 0.4 thou/uL (0.0-0.7); ABSOLUTE LYMPHOCYTES 1.1 thou/uL (0.8-5.3); ABSOLUTE MONOCYTES 0.7 thou/uL (0.0-1.2); ABSOLUTE NEUTROPHILS 3.4 thou/uL (1.6-8.1); BASOPHILS 0.3 %; EOSINOPHILS 7.3 %; HEMATOCRIT 31.6 % (37.0-47.0); HEMOGLOBIN 9.6 gm/dL (12.0-15.0); LYMPHOCYTES 19.9 %; MCH 28.9 pg (26.0-34.0); MCHC 30.5 g/dL (28.0-37.0); MCV 94.8 fL (80.0-100.0); MONOCYTES 12.1 %; NUCLEATED RBCS 0 /100WBC; PLATELET COUNT* 224 thou/uL (150-400); POLYS 60.4 %; RBC 3.33 mil/uL (4.20-5.00); RDW-CV 17.1 % (10.5-14.5); WBC 5.7 thou/uL (4.0-11.0)
[2018-11-01 10:22] LABS: ALBUMIN 2.4 g/dL (3.4-5.0); CALCIUM 7.8 mg/dL (8.5-10.1); CREATININE 1.7 mg/dL (0.6-1.3); POTASSIUM 5.8 mmol/L (3.5-5.1); TOTAL PROTEIN 5.8 g/dL (6.4-8.2)
--- NOTE | 2018-11-01 10:52 | NUR ---
Pt is A&O. Resides at home with her dtr. Independent, continues to cook and clean, dtr drives. Pt has a cane and walker at home, primarily uses the cane. No hx of HH or SNF. Goal is home at pr. No needs.
[2018-11-01 12:20] LABS: INR 1.2
[2018-11-01] MEDS ORDERED: ASPIRIN81 M2 PO (12:57)
[2018-11-01] MEDS ORDERED: LIPITOR 20 MG T20 M1 PO (12:57)
[2018-11-01] MEDS ORDERED: ALEVE220 MG PO (12:58)
[2018-11-01] MEDS ORDERED: ZOFRAN ODT4 MG PO (12:58)
[2018-11-01 16:00] VITALS: BP 114/48
--- NOTE | 2018-11-01 17:15 | NUR ---
PT A&Ox3. FORGETFUL AT TIMES. VITALS STABLE ON RA. SLIGHT RASH ON ABD AND BACK, PT BELIEVES IT IS FROM VIT D. IV L UPPER ARM PATENT, INFUSING. UP STAND BY TO CAMMODE. DENIED PAIN. NAUSEA CONTROLLED WITH ZOFRAN. OK FOR CLEAR LIQUIDS PER ARNEL, TOLERATING. DAUGHTER AT BEDSIDE. CALL LIGHT WITHIN REACH. WILL CONTINUE TO MONITOR.
[2018-11-01 20:00] VITALS: BP 125/53
[2018-11-02] VITALS: BP 127/58
[2018-11-02 05:10] LABS: HEMATOCRIT 29.8 % (37.0-47.0); HEMOGLOBIN 9.8 gm/dL (12.0-15.0); MCH 28.9 pg (26.0-34.0); MCHC 32.8 g/dL (28.0-37.0); MPV 8.5 fl. (7.2-11.1); RBC 3.38 mil/uL (4.20-5.00); WBC 6.6 thou/uL (4.0-11.0)
[2018-11-02 05:38] LABS: MCV 88.2 fL (80.0-100.0)
[2018-11-02 05:54] LABS: ALBUMIN 2.3 g/dL (3.4-5.0); CALCIUM 8.4 mg/dL (8.5-10.1); CREATININE 1.5 mg/dL (0.6-1.3); MAGNESIUM 2.1 mg/dL (1.8-2.4); TOTAL PROTEIN 6.2 g/dL (6.4-8.2)
[2018-11-02 06:07] LABS: POTASSIUM 6.2 mmol/L (3.5-5.1)
[2018-11-02 07:45] VITALS: BP 108/42
--- NOTE | 2018-11-02 07:51 | NUR ---
PATIENT HAS SLEPT OFF AND ON DURING THE NIGHT. VSS ON RA. NO C/O PAIN. PATIENT HAS REMAINED NPO SINCE MIDNIGHT D/T SCHEDULED PROCEDURE TODAY. PATIENT IS UP WITH SBA TO THE BSC. NOTIFIED THIS AM OF ELEVATED K+ OF 6.2. FLUIDS STOPPED THIS AM AND LABS TO BE REDRAWN. IV IN LEFT ARM-SL. PATIENT INSTRUCTED TO USE CALL LIGHT WHEN NEEDING ASSISTANCE. HOURLY ROUNDS MADE. WILL CONTINUE WITH PLAN OF CARE AND NURSING TO MONITOR.
--- NOTE | 2018-11-02 15:48 | NUR ---
PATIENT NOTED TO BE MORE CONFUSED THE DAY PROGRESSES. REPEATING QUESTIONS THIS AFTERNOON. COOPERATIVE. NO ACUTE DISTRESS NOTED. ~TJRN
[2018-11-02 16:06] VITALS: BP 99/40
[2018-11-02 20:30] VITALS: BP 117/52
[2018-11-03 02:07] LABS: HEPATITIS B SURFACE AG Negative (Negative)
[2018-11-03 04:40] LABS: HEMATOCRIT 28.8 % (37.0-47.0); HEMOGLOBIN 9.4 gm/dL (12.0-15.0); MCH 28.9 pg (26.0-34.0); MCHC 32.7 g/dL (28.0-37.0); MCV 88.4 fL (80.0-100.0); MPV 8.4 fl. (7.2-11.1); RBC 3.26 mil/uL (4.20-5.00); WBC 6.4 thou/uL (4.0-11.0)
--- NOTE | 2018-11-03 05:07 | NUR ---
PT ALERT AND ORIENTED. VITALS, O2 SAT STABLE RA. MEDS GIVEN ORDERED. NO PAIN OR NAUSEA. WILL CONTINUE TO MONITOR.
[2018-11-03 05:23] LABS: ALBUMIN 2.3 g/dL (3.4-5.0); CALCIUM 8.6 mg/dL (8.5-10.1); CREATININE 1.6 mg/dL (0.6-1.3); MAGNESIUM 1.9 mg/dL (1.8-2.4); POTASSIUM 4.6 mmol/L (3.5-5.1); TOTAL BILIRUBIN 2.2 mg/dL (<0.1-1.0); TOTAL PROTEIN 6.1 g/dL (6.4-8.2)
[2018-11-03 08:00] VITALS: BP 124/63
--- NOTE | 2018-11-03 14:38 | CON ---
[address] [address] CONSULTATION Name: NEGRITOSTANLEY N Room: [address] IN .R.#: [id number] Admission: 10/31/18 Attend Phys: Wagner Beasley Discharge: Date of : 40 Report #: [id number] THIS REPORT FOR: //name// CC: Mary Lou Powell DATE OF SERVICE: 11/02/2018 REQUESTING PHYSICIAN: Dr. Amaral. REASON FOR CONSULTATION: Hyperkalemia. HISTORY OF PRESENT ILLNESS: The patient is a very pleasant 78-year-old female who was admitted with chief complaints of poor appetite, poor p.o. intake, some nausea and not feeling well, abdominal discomfort. The symptoms started for the last [address] Amaral evaluated her and recommended MRCP. On admission, her LFTs were elevated. Her potassium was 5.8. She also had elevated creatinine, it was 2.2. She was given LR and her creatinine improved down to 1.5; however, her potassium was 6.2 and I was consulted. PAST MEDICAL HISTORY: Significant for chronic kidney disease stage 3, history of diarrhea, history of stroke, urinary tract infection, vomiting, weakness. She also has history of carotid artery disease, history of mild aortic stenosis, and history of breast cancer. She had right mastectomy 20 years ago. SOCIAL HISTORY: No tobacco, no alcohol abuse. FAMILY HISTORY: Noncontributory due to the patient's age. MEDICATIONS: Prior to admission reviewed. She was on Lipitor, aspirin, lisinopril, Lexapro, melatonin, and Antivert. REVIEW OF SYSTEMS: All systems reviewed and positive for the symptoms as I mentioned earlier, otherwise negative. PHYSICAL EXAMINATION: GENERAL: Awake, alert, oriented. VITAL SIGNS: Blood pressure 127/58, heart rate 65, afebrile. HEENT: Pupils are round. NECK: Supple. LUNGS: Clear. CARDIOVASCULAR: Regular rate. ABDOMEN: Soft. EXTREMITIES: No edema. LABORATORY DATA: Most recent labs from today revealed potassium 5.1, [place] [address] CONSULTATION Name: STANLEY MAHAN Fany Room: [address] IN [facility]#: [id number] Admission: 10/31/18 Attend Phys: Wagner Beasley Discharge: Date of : 40 Report #: [id number] repeat after she was given Kayexalate and her BUN and creatinine improved, creatinine down to 1.5 and BUN down to 40. ASSESSMENT: 1. Acute kidney injury due to volume depletion. 2. Hyperkalemia due to combination of acute kidney injury, lisinopril, LR, and potassium. 3. Chronic kidney disease, stage 3. 4. Elevated liver function tests. PLAN: 1. Stop LR. 2. Stop lisinopril. 3. Continue with NS. 4. Follow her functions. Discussed with the nurse. <ELECTRONICALLY SIGNED> By: Skyler Raygoza MD 11/03/18 1438 1122 [id number] Raygoza MD /PMT
[2018-11-03 15:30] VITALS: BP 159/54
--- NOTE | 2018-11-03 17:02 | NUR ---
pt remained alert and oriented. pt resting in room. npo after midnight for egd and ercp. pt c/o funny taste in mouth and being very fatigued. doctor notified. fall risk precautions in place. hourly rounding completed. will continue to monitor.
[2018-11-03 21:00] VITALS: BP 120/44
[2018-11-04 02:42] LABS: HEMATOCRIT 26.8 % (37.0-47.0); HEMOGLOBIN 8.9 gm/dL (12.0-15.0); MCH 29.1 pg (26.0-34.0); MCHC 33.1 g/dL (28.0-37.0); MPV 8.5 fl. (7.2-11.1); RBC 3.04 mil/uL (4.20-5.00)
[2018-11-04 02:50] LABS: INR 1.3; PROTIME 12.8 Seconds (9.20-11.50)
[2018-11-04 03:05] LABS: ALBUMIN 2.3 g/dL (3.4-5.0); CALCIUM 8.2 mg/dL (8.5-10.1); CREATININE 1.7 mg/dL (0.6-1.3); MAGNESIUM 1.4 mg/dL (1.8-2.4); TOTAL PROTEIN 5.8 g/dL (6.4-8.2)
--- NOTE | 2018-11-04 05:07 | NUR ---
PT ALERT AND ORIENTED. VITALS STABLE. MEDS GIVEN ORDERED. NO PAIN, NAUSEA OR VOMITING. NPO AT MIDNIGHT FOR PROCEDURE TODAY. WILL CONTINUE TO MONITOR.
[2018-11-04 08:00] VITALS: BP 125/57; BP 148/68
[2018-11-04 11:03] VITALS: BP 125/57
[2018-11-04 16:00] VITALS: BP 112/68
[2018-11-04 16:12] LABS: INR 1.3; PROTIME 13.4 Seconds (9.20-11.50)
--- NOTE | 2018-11-04 18:32 | NUR ---
PT A&Ox4. VITALS STABLE. GOT EGD AND ERCP DONE TODAY. TOLERATING FLUID AND DIET. UP WITH STB ASSIST TO CAMMODE. IV PATENT, INFUSING. MAG REPLACING CURRENTLY. NEEDS TO BE OFF BLOOD THINNERS FOR 5 DAYS BEFORE HAVING LIVER BIOPSY. CALL LIGHT WITHIN REACH. WILL CONTINUE TO MONITOR.
[2018-11-04 20:00] VITALS: BP 103/77
[2018-11-05 05:33] LABS: HEMOGLOBIN 8.7 gm/dL (12.0-15.0); MCH 29.2 pg (26.0-34.0); MCHC 33.4 g/dL (28.0-37.0); MCV 87.5 fL (80.0-100.0); MPV 8.6 fl. (7.2-11.1); RBC 2.97 mil/uL (4.20-5.00); RDW-CV 15.8 % (10.5-14.5); WBC 5.4 thou/uL (4.0-11.0)
[2018-11-05 05:52] LABS: ALBUMIN 2.1 g/dL (3.4-5.0); CALCIUM 8.4 mg/dL (8.5-10.1); CREATININE 1.4 mg/dL (0.6-1.3); MAGNESIUM 2.3 mg/dL (1.8-2.4); PHOSPHORUS* 4.1 mg/dL (2.5-4.9); POTASSIUM 4.1 mmol/L (3.5-5.1); TOTAL BILIRUBIN 2.4 mg/dL (<0.1-1.0); TOTAL PROTEIN 5.7 g/dL (6.4-8.2)
--- NOTE | 2018-11-05 07:30 | NUR ---
Alert and oriented x 4. Up with assist x 1 to BS. She is voiding well. Denies pain. Vitals stable. She slept well.
[2018-11-05 08:00] VITALS: BP 103/49
[2018-11-05] MEDS ORDERED: ANTACID650 MG PO (09:23)
[2018-11-05] MEDS ORDERED: NORCO 7.5-3251 EACH PO (09:23)
[2018-11-05 10:07] VITALS: BP 103/49
--- NOTE | 2018-11-05 11:48 | NUR ---
ASSUMED CARE OF PATIENT AT 1100. ALERT AND ORIENTED X4. PATIENT DISCHARGED AT 1145 WITH ALL PERSONAL BELONGINGS, PRESCRIPTIONS AND DISCHARGE INFORMATION.
--- NOTE | 2018-11-05 12:04 | NUR ---
COMPUTERIZED DOCUMENTATION REVIEWED. PATIENT DC'ED PRIOR TO P.T. EVALUATION. MULTIPLE ATTEMPTS MADE OF THE THE LAST FEW DAYS TO EVAL AND TREAT. SHANNON MCCORMICK, MPT
--- NOTE | 2018-11-06 12:32 | CON ---
[address] [address] CONSULTATION Name: STANLEY MAHAN Room: [address] IN M.R.#: [id number] Admission: 10/31/18 Attend Phys: Wagner Beasley Discharge: 11/05/18 Date of : 40 Report #: [id number] THIS REPORT FOR: //name// CC: Brad Powell MD DICTATED BY: Charis Murray [facility] DATE OF SERVICE: 11/01/2018 Please note at the time of this dictation, the patient was seen and physically examined by myself. REASON FOR CONSULTATION: Elevated LFTs. HISTORY OF PRESENT ILLNESS: This is a pleasant 78-year-old female who presented to the ER with weakness, which was progressively getting worse. The patient states that she noticed a change in her appetite and overall demeanor on 10/13/2018. She states her appetite has been very poor. She has had decreased intake, both liquids and solids because she has had no appetite and she has just progressively gotten weaker to the point that prompted her to come in. She also noticed that her urine had changed in color and it was more of an orangey looking. She denied any nausea, vomiting, any difficulty swallowing. No fever or chills and she denied any abdominal pain. She states her bowels were moving, but significantly less than they normally do because she was not eating very much. The patient did have an EGD and colonoscopy back in 2014. EGD was completely normal. Colonoscopy showed polyps, 4 tubular adenomas, sigmoid diverticulosis and external hemorrhoids. It was noted on admission that she had elevated LFTs. Her total bilirubin was 2.5, alkaline phosphatase was 2314, ALT was 339 and AST was 437 at that time. The patient still does have her gallbladder as well. ALLERGIES: PENICILLIN. HOME MEDICATIONS: Include Lexapro, Zestril, melatonin, and Antivert. PAST MEDICAL HISTORY: She had breast cancer, hypertension, constipation, chronic kidney disease, and some mild aortic stenosis. PAST SURGICAL HISTORY: She had a right mastectomy. She has had a left lower leg fracture. FAMILY HISTORY: [place] [address] CONSULTATION Name: STANLEY MAHAN Room: [address]#: [id number] Admission: 10/31/18 Attend Phys: Wagner Beasley Discharge: 11/05/18 Date of : 40 Report #: [id number] SOCIAL HISTORY: Denies tobacco, alcohol or illegal drug use. REVIEW OF SYSTEMS: Twelve-point review of systems is essentially negative except what is mentioned in the HPI. PHYSICAL EXAMINATION: VITAL SIGNS: Temperature 36.6, pulse 82, respirations 16, blood pressure 100/58. HEART: Regular rate and rhythm. LUNGS: Clear. ABDOMEN: Soft, positive bowel sounds in all 4 quadrants with some slight epigastric tenderness noted to palpation. LABORATORY DATA: Hemoglobin is 9.6, white count is 5.7, platelets 224. GFR is only 29. Total bilirubin this morning is 2. Alkaline phosphatase 1813, ALT is 284 and AST is 368. Lipase was 1078 and urine was positive for bilirubin. CT of the abdomen and pelvis showed calcified gallstones, no wall thickening or dilatation of any of the ducts. IMPRESSION: 1. Elevated LFTs. 2. Poor appetite. 3. Epigastric pain. 4. Weight loss about 5 pounds since 10/13/2018. 5. Anemia. 6. Chronic kidney disease. 7. Personal history of breast cancer and family history of breast cancer. PLAN: 1. MRCP. 2. We will await above results. If choledocholithiasis is noted, will need to proceed with an ERCP with Dr. Amaral. Thank you for allowing us to participate in this patient's care. Please do not hesitate to call with any questions in regard to this consult. ADDENDUM REFERRING PHYSICIAN: Amy Powell MD. I have seen and examined, currently and agree with plan that has been outlined by our nurse practitioner, Charis Murray. The patient is a pleasant 78-year-old white female who has been feeling poorly for the last 3-4 weeks with associated complaints of anorexia, early satiety, [place] [address] CONSULTATION Name: STANLEY MAHAN Room: [address]#: [id number] Admission: 10/31/18 Attend Phys: Wagner Beasley Discharge: 11/05/18 Date of : 40 Report #: [id number] weakness and generalized malaise. She has also had a severe depression and at one point asking for God to take her. She has not been feeling well at all. She denies any fevers, chills or any abdominal pain. She has actually been moving her bowels. She was seen through the Emergency Room and found to have some anemia and elevated LFTs with a striking elevation of her alkaline phosphatase. Her physical examination is essentially unremarkable. I reviewed the patient's CT scan of the abdomen and pelvis, which was performed without IV contrast as well as her abdominal ultrasound and most recently, her MRCP. I am concerned that she may have some element of biliary obstruction despite the fact that the MRCP was read out as normal. I am concerned about underlying malignancy. For this reason, I recommended that we proceed with an upper endoscopy as well as an ERCP tomorrow morning. I do not feel that her symptoms warrant a laparoscopic cholecystectomy unless I see something that is overtly remarkable on her ERCP. We will proceed with upper endoscopy and ERCP tomorrow. I have discussed the plans with the patient as well as her [id number], November, over the phone, and they are agreeable to the same. Depending on the results of the same, the patient may need to have an endoscopic ultrasound or possibly an ultrasound-guided liver biopsy for markedly elevated LFTs. We will proceed with endoscopic studies tomorrow and make further recommendations thereafter. <ELECTRONICALLY SIGNED> By: Massimo Amaral DO 11/06/18 1232 1129 [id number] Amaral DO /nt
[2018-11-09 11:06] LABS: IgG 1142 mg/dL (700-1600); IgM 49 mg/dL (26-217)
--- NOTE | 2018-11-09 18:06 | PATH ---
[address] [address] PATHOLOGY RPT PROCEDURE Name: STANLEY MAHAN Room: [address]#: [id number] Admission: 10/31/18 Date of : 40 Discharge: 11/05/18 Report #: [id number] Path Case #: [id number] Note [facility] Accession Number: [id number] TESTS RESULT FLAG UNITS REF RANGE LAB Clinician Provided Cytology Information No. of containers..01 Other (Miscellaneous) Source: DISTAL CBD BRUSH TIP DIAGNOSIS: 02 DISTAL CBD BRUSH TIP ATYPICAL DUCTAL EPITHELIAL CELLS ARE PRESENT. LIMITED BY 'SMEAR' ARTIFACT. Signed out by: 02 Emanuel Hi MD, Pathologist NPI- [id number] Performed by: Jon Villagomez, Cement Mason ([facility]) Gross description: 01 10ML, COLORLESS, CLOUDY /LCS FLAG LEGEND: L-Low Normal,H-High Normal,LL-Alert Low,HH-Alert High <-Panic Low,>-Panic High,A-Abnormal,AA-Critical Abnormal Performed at: [address] [place] [address] Ananda Machado MD, [address] [place] [address] [facility], [place] [address] Emanuel Hi MD, Specimen Comment: A courtesy copy of this report has been sent to Specimen Comment: [phone], , . Specimen Comment: Report sent to DR LARA,DR ROSE / DR MERRILL Performed at: [address], [place], [place] [id number] MD Ananda Machado MD Phone: [phone]
--- NOTE | 2018-11-09 18:06 | PATH ---
[address] [address] PATHOLOGY RPT PROCEDURE Name: STANLEY MAHAN Room: [address]#: [id number] Admission: 10/31/18 Date of : 40 Discharge: 11/05/18 Report #: [id number] Path Case #: [id number] Note [facility] Accession Number: [id number] TESTS RESULT FLAG UNITS REF RANGE LAB Clinician Provided Cytology Information No. of containers..01 Other (Miscellaneous) Source: PANC DUCT BRUSHING DIAGNOSIS: 02 PANC DUCT BRUSHING PAUCICELLULAR WITH FEW GROUPS OF ATYPICAL DUCTAL EPITHELIAL CELLS AND BACKGROUND OF BENIGN DUCTAL EPITEHELIAL CELLS. Signed out by: 02 Emanuel Hi MD, Pathologist NPI- [id number] Performed by: 01 Jon Villagomez, Location Analyst ([facility]) Gross description: 01 10ML, COLORLESS, CLEAR /LCS FLAG LEGEND: L-Low Normal,H-High Normal,LL-Alert Low,HH-Alert High <-Panic Low,>-Panic High,A-Abnormal,AA-Critical Abnormal Performed at: [address] [address] Ananda Machado MD, [address] [place] [address] [address] [place] [address] Emanuel Hi MD, Specimen Comment: A courtesy copy of this report has been sent to Specimen Comment: [phone]. Specimen Comment: Report sent to DR LARA Performed at: [address] [address], [place], [place] [id number] MD Ananda Machado MD Phone: [phone]
== END 2018-11-05 11:45 | disposition home or self-care (01) | DRG 438 ==
LOC: M.ERS 19:46 → M.2W 21:02 → M.TBA-ER 21:02 → M.ORTHSURG 21:02 → M.2W 11-01 00:23 → M.ORTHSURG 11-02 12:26
PROVIDERS: Emergency Medicine; Internal Medicine; Internal Medicine Gastroenterology; Nurse Practitioner Adult Health; Surgery; ADMIT Internal Medicine
PROC: 0DJ08ZZ Inspection of Upper Intestinal Tract, Via Natural or Artificial Opening Endoscopic (ICD-10-PCS; principal; 2018-11-04)
PROC: 0F798DZ Dilation of Common Bile Duct with Intraluminal Device, Via Natural or Artificial Opening Endoscopic (ICD-10-PCS; principal; 2018-11-04)
PROC: 0FD98ZX Extraction of Common Bile Duct, Via Natural or Artificial Opening Endoscopic, Diagnostic (ICD-10-PCS; 2018-11-04)
DX: K85.90 Acute pancreatitis without necrosis or infection, unspecified (principal); N17.0 Acute kidney failure with tubular necrosis; N39.0 Urinary tract infection, site not specified; E44.0 Moderate protein-calorie malnutrition; K80.20 Calculus of gallbladder without cholecystitis without obstruction; F41.1 Generalized anxiety disorder; K59.00 Constipation, unspecified; N18.3 Chronic kidney disease, stage 3 (moderate); D64.9 Anemia, unspecified; I73.9 Peripheral vascular disease, unspecified; E86.9 Volume depletion, unspecified; E87.5 Hyperkalemia; I35.0 Nonrheumatic aortic (valve) stenosis; I12.9 Hypertensive chronic kidney disease with stage 1 through stage 4 chronic kidney disease, or unspecified chronic kidney disease; E78.5 Hyperlipidemia, unspecified; R74.0 Nonspecific elevation of levels of transaminase and lactic acid dehydrogenase [LDH]; E80.6 Other disorders of bilirubin metabolism; Z85.3 Personal history of malignant neoplasm of breast; Z87.81 Personal history of (healed) traumatic fracture; Z88.0 Allergy status to penicillin; Z90.11 Acquired absence of right breast and nipple; Z80.3 Family history of malignant neoplasm of breast; Z82.49 Family history of ischemic heart disease and other diseases of the circulatory system; Z79.82 Long term (current) use of aspirin; Z79.899 Other long term (current) drug therapy; Z68.22 Body mass index [BMI] 22.0-22.9, adult

== ENCOUNTER → 2018-11-25 | Outpatient (CLI) | payer OTHER, MEDICAID ==
[~2018-11-25] MED LIST changes: +ANTACID650 MG PO; +ASPIRIN81 M2 PO; +NORCO 7.5-3251 EACH PO
[2018-11-25 13:03] LABS: HEMOGLOBIN 8.6 gm/dL (12.0-15.0); MCV 92.5 fL (80.0-100.0); WBC 4.7 thou/uL (4.0-11.0)
[2018-11-25 13:04] LABS: HEMATOCRIT 26.2 % (37.0-47.0); MCH 30.3 pg (26.0-34.0); MCHC 32.8 g/dL (28.0-37.0); MPV 8.1 fl. (7.2-11.1); NUCLEATED RBCS 0 /100WBC; PLATELET COUNT* 412 thou/uL (150-400); RBC 2.84 mil/uL (4.20-5.00); RDW-CV 20.1 % (10.5-14.5)
[2018-11-25 13:31] LABS: PROTIME 10.1 Seconds (9.20-11.50)
[2018-11-25 13:33] LABS: ALBUMIN 2.7 g/dL (3.4-5.0); CALCIUM 8.9 mg/dL (8.5-10.1); POTASSIUM 3.7 mmol/L (3.5-5.1); TOTAL BILIRUBIN 4.9 mg/dL (<0.1-1.0); TOTAL PROTEIN 6.9 g/dL (6.4-8.2)
[2018-11-25 14:07] LABS: ABSOLUTE BASOPHILS 0.1 thou/uL (0.0-0.2); ABSOLUTE EOSINOPHILS 0.5 thou/uL (0.0-0.7); ABSOLUTE LYMPHOCYTES 2.4 thou/uL (0.8-5.3); ABSOLUTE MONOCYTES 0.1 thou/uL (0.0-1.2); ABSOLUTE NEUTROPHILS 1.6 thou/uL (1.6-8.1); ANISOCYTOSIS 2+; ATYPICAL LYMPHS 6 %; PLATELET ESTIMATE ADEQUATE
== END ==
LOC: M.LAB 12:29
PROVIDERS: Internal Medicine Gastroenterology
DX: R94.5 Abnormal results of liver function studies (principal); Z79.899 Other long term (current) drug therapy

== ENCOUNTER → 2018-12-24 | Outpatient (CLI) | payer OTHER, MEDICAID | LOC: M.MRI 08:23 | DX: K80.20 Calculus of gallbladder without cholecystitis without obstruction (principal); N28.1 Cyst of kidney, acquired; K82.8 Other specified diseases of gallbladder ==

== ENCOUNTER → 2018-12-30 | Outpatient (CLI) | payer OTHER, MEDICAID ==
[2018-12-30 11:25] LABS: ABSOLUTE LYMPHOCYTES 1.4 thou/uL (0.8-5.3); ABSOLUTE MONOCYTES 0.4 thou/uL (0.0-1.2); ABSOLUTE NEUTROPHILS 4.8 thou/uL (1.6-8.1); BASOPHILS 0.7 %; EOSINOPHILS 0.6 %; HEMATOCRIT 32.8 % (37.0-47.0); HEMOGLOBIN 10.8 gm/dL (12.0-15.0); LYMPHOCYTES 20.7 %; MCH 31.2 pg (26.0-34.0); MCHC 32.8 g/dL (28.0-37.0); MCV 95.2 fL (80.0-100.0); MONOCYTES 5.5 %; MPV 7.7 fl. (7.2-11.1); NUCLEATED RBCS 0 /100WBC; PLATELET COUNT* 268 thou/uL (150-400); POLYS 72.5 %; RBC 3.44 mil/uL (4.20-5.00); RDW-CV 16.1 % (10.5-14.5); WBC 6.6 thou/uL (4.0-11.0)
[2018-12-30 11:32] LABS: PROTIME 10.1 Seconds (9.20-11.50)
[2018-12-30 11:36] LABS: ALBUMIN 3.3 g/dL (3.4-5.0); CALCIUM 9.2 mg/dL (8.5-10.1); CREATININE 1.2 mg/dL (0.6-1.3); POTASSIUM 3.4 mmol/L (3.5-5.1); TOTAL BILIRUBIN 0.8 mg/dL (<0.1-1.0)
== END ==
LOC: M.LAB 10:49
PROVIDERS: Nurse Practitioner Adult Health
DX: R94.5 Abnormal results of liver function studies (principal)

== ENCOUNTER → 2019-02-17 | Outpatient (CLI) | payer OTHER, MEDICAID ==
[2019-02-17 09:21] LABS: ABSOLUTE BASOPHILS 0.1 thou/uL (0.0-0.2); ABSOLUTE EOSINOPHILS 0.2 thou/uL (0.0-0.7); ABSOLUTE LYMPHOCYTES 2.1 thou/uL (0.8-5.3); ABSOLUTE MONOCYTES 0.5 thou/uL (0.0-1.2); ABSOLUTE NEUTROPHILS 2.5 thou/uL (1.6-8.1); BASOPHILS 1.2 %; EOSINOPHILS 3.3 %; HEMATOCRIT 34.9 % (37.0-47.0); HEMOGLOBIN 11.3 gm/dL (12.0-15.0); LYMPHOCYTES 39.3 %; MCH 28.2 pg (26.0-34.0); MCHC 32.3 g/dL (28.0-37.0); MCV 87.3 fL (80.0-100.0); MONOCYTES 9.7 %; MPV 7.5 fl. (7.2-11.1); NUCLEATED RBCS 0 /100WBC; PLATELET COUNT* 392 thou/uL (150-400); POLYS 46.5 %; RDW-CV 15.1 % (10.5-14.5); WBC 5.4 thou/uL (4.0-11.0)
[2019-02-17 09:26] LABS: PROTIME 10.7 Seconds (9.20-11.50)
[2019-02-17 09:40] LABS: ALBUMIN 3.5 g/dL (3.4-5.0); CALCIUM 8.9 mg/dL (8.5-10.1); CREATININE 1.4 mg/dL (0.6-1.3); POTASSIUM 4.4 mmol/L (3.5-5.1); TOTAL BILIRUBIN 0.4 mg/dL (<0.1-1.0); TOTAL PROTEIN 6.7 g/dL (6.4-8.2)
== END ==
LOC: M.LAB 08:38 → M.ULTRA 08:38
PROVIDERS: Internal Medicine Gastroenterology
DX: N28.1 Cyst of kidney, acquired (principal); K80.20 Calculus of gallbladder without cholecystitis without obstruction

== ENCOUNTER 2020-07-08 15:05 | Emergency (ER) | payer MEDICARE ==
[~2020-07-08] VITALS: Ht 157.5 cm; Wt 52.2 kg
[2020-07-08] MEDS ORDERED: DOXYCYCLINE 10100 MG PO (15:24)
[2020-07-08] MEDS ORDERED: CELEXA 10 MG TA10 M1 PO (15:29)
[2020-07-08 15:42] VITALS: BP 121/64
== END 2020-07-08 15:43 | disposition home or self-care (01) ==
LOC: M.ERS 15:05
DX: L03.113 Cellulitis of right upper limb (principal); I13.10 Hypertensive heart and chronic kidney disease without heart failure, with stage 1 through stage 4 chronic kidney disease, or unspecified chronic kidney disease; N18.30 Chronic kidney disease, stage 3 unspecified; Z88.0 Allergy status to penicillin; Z85.3 Personal history of malignant neoplasm of breast; Z90.11 Acquired absence of right breast and nipple